=== PATIENT | female | born 1940 ===

== ENCOUNTER 2023-08-03 09:01 | Day surgery (SDC) | payer MEDICARE ==
[2023-08-03] VITALS (12 sets, daily range): BP systolic 128–166; BP diastolic 61–78; PULSE 56–65; TEMP 97.4; O2SAT 99
[~2023-08-03] VITALS: Ht 160.1 cm; Wt 52.6 kg
[~2023-08-03 09:01] MED LIST: ASPIRIN E.C. 8181 MG PO; CALCIUM 600MG+D1 TAB PO; EUTHYROX75 MCG PO; PRINIVIL20 MG PO; TOPROL XL 25MG25 MG PO; ZOCOR 10MG10 MG PO
[2023-08-03] MEDS ORDERED: LIPITOR 80MG80 MG PO (09:25)
[2023-08-03] MEDS ORDERED: TOPROL XL 50MG50 MG PO (09:25)
[2023-08-03] MEDS ORDERED: SYNTHROID0.1 MG/TAB PO (09:26)
[2023-08-03] MEDS ORDERED: LASIX 20MG TABL20 MG PO (09:26)
[2023-08-03 09:40] LABS: HEMATOCRIT 40.4 % (37.0-47.0); HEMOGLOBIN 13.6 g/dl (12.5-16.0); MEAN CELL VOLUME 90 fl (80.0-100.0); MEAN CORPUSCULAR HEMOGLOBIN 30 pg (27-31); MEAN CORPUSCULAR HGB CONC 34 g/dl (33.0-37.0); MEAN PLATELET VOLUME 10.3 fl (7.4-10.4); PLATELET COUNT 168 K/mm3 (130-400); RED BLOOD COUNT 4.51 M/mm3 (4.10-5.30); REDCELL DISTRIBUTION WIDTH-CV 12.5 % (11.5-14.5)
[2023-08-03] MEDS ORDERED: 1/2 NS 1,000 ML IV SCH (09:45)
[2023-08-03 09:51] LABS: INR 1.1 (0.8-3.0); PARTIAL THROMBOPLASTIN TIME 35.5 SECONDS (26.0-37.0); PROTHROMBIN TIME 11.6 SECONDS (9.7-12.8)
[2023-08-03 10:22] LABS: CALCIUM 9.3 mg/dL (8.4-10.2); CREATININE, serum 0.79 mg/dL (0.57-1.11); POTASSIUM 4.1 mEq/L (3.5-4.5)
--- NOTE | 2023-08-03 10:59 | NUR ---
Please see merge documentation for record of interventions, vitals and medications administered during left heart cath.
[2023-08-03] MEDS ORDERED: Midazolam 2 MG/2 ML VIAL IV SCH (12:21)
[2023-08-03] MEDS ORDERED: fentaNYL 50 MCG/ML 2 ML VIAL IV SCH (12:22)
[2023-08-03] MEDS ORDERED: Bivalirudin 250 MG in NS 50 ML IV SCH (12:25)
[2023-08-03] MEDS ORDERED: Adenosine 6 MG/2 ML VIAL INCOR SCH (12:28)
[2023-08-03] MEDS ORDERED: IMDUR 60MG60 MG/TAB PO (12:55)
--- NOTE | 2023-08-03 13:00 | NUR ---
Emilee was escorted back to [facility] unit rm 9 after left heart cath. She is awake and alert, pwd, denies pain. Rt groin site dressing is cdi, soft without evidence of hematoma, rt pedal pulse 2+. at bs. Dr. Devi in to talk with . Bedside report and handoff to Phylicia PRABHAKAR. Pt hooked up to tele and monitor, vss stable. water given, call light in reach, extra pillow provided for kyphotic posture.
--- NOTE | 2023-08-03 16:05 | NUR ---
PT TOLERATED RECOVERY PERIOD WELL. VS REMAINED WITHIN NORMAL LIMITS. RIGHT FEMORAL DRESSING CLEAN DRY AND INTACT UPON DISCHARGE. PT ASSISTED TO MAIN LOBBY VIA WHEELCHAIR AND PT VERBALIZED UNDERSTANDING OF DISCHARGE INSTRUCTIONS. IV DISCONTINUED AND PT FREE FROM ACUTE CONCERNS AND COMPLAINTS.
== END 2023-08-03 16:07 | disposition home or self-care (01) ==
LOC: COL.CAR 09:01
PROVIDERS: Internal Medicine Cardiovascular Disease
DX: I25.10 Atherosclerotic heart disease of native coronary artery without angina pectoris (principal)
CPT/HCPCS: C1760; C1769; C1887; C1894; J0153; J0583; J1644; J2250; J3010